=== PATIENT | female | born 1960 | race African-American/Black ===

== ENCOUNTER 2025-05-28 20:46 | Inpatient (IN) | payer OTHER ==
[2025-05-28] MEDS ORDERED: HYDROMORPHONE HCL 0.5 MG/0.5 ML INJ ONE (21:25)
[2025-05-28] MEDS ORDERED: Ringers Lactate 1,000 ML IV ONE (21:26)
[2025-05-28] MEDS ORDERED: NA CHLORIDE 0.9% 100 ML ONE (21:26)
[2025-05-28] MEDS ORDERED: PIPERACIL/TAZO 3.375 GM VIAL IV ONE (21:26)
[2025-05-28] MEDS ORDERED: ONDANSETRON 4 MG/2 ML VIAL ONE (21:26)
--- NOTE | 2025-05-28 21:28 | ER ---
Nurse's Notes [facility] [place] Name: Ashley Henao Age: 64 yrs Sex: Female : 1960 Arrival Date: 05/28/2025 Time: 20:46 Bed 18 Private MD: Diagnosis: DIVERTICULITIS OF INTESTINE WITHOUT PERFORATION;Lower abdominal pain, unspecified;Nausea Presentation: 05/28 20:51 Chief complaint: Patient states: SENT BY DOCTOR SPRINGER DUE TO ABNORMAL CT RESULTS, ha1 LOWER ABDOMINAL PAIN AND NAUSEA SINCE LAST WEEK. 20:51 Coronavirus screen: Client denies travel out of the [place] in the last 14 days. Ebola ha1 Screen: No symptoms or risks identified at this time. Initial Sepsis Screen: Does the patient meet any 2 criteria? No. Patient's initial sepsis screen is negative. Does the patient have a suspected source of infection? No. Patient's initial sepsis screen is negative. Risk Assessment: Do you want to hurt yourself or someone else? Patient reports no desire to harm self or others. Onset of symptoms was May 28, 2025. 20:51 Method Of Arrival: Ambulatory ha1 20:51 Acuity: LEROY 3 ha1 Triage Assessment: 21:02 General: Appears comfortable, Behavior is calm, cooperative. Pain: Complains of pain in ha1 right lower quadrant and left lower quadrant Pain currently is 6 out of 10 on a pain scale. Quality of pain is described as crampy. Neuro: Level of Consciousness is awake, alert, obeys commands, Oriented to person, place, time, situation. Cardiovascular: Patient's skin is warm and dry. Historical: - Allergies: 21:02 Latex, Natural Rubber; ha1 - PMHx: 21:02 Hypercholesterolemia; Hypertensive disorder; Diverticulitis; ha1 - Immunization history:: Adult Immunizations up to date. - Infectious Disease History:: Denies. - Social history:: Smoking status: Patient denies any tobacco usage or history of. Screenin:05 [facility] [place] ED Fall Risk Assessment (Adult) History of falling in the last 3 months, la1 including since admission No falls in past 3 months (0 pts) Confusion or Disorientation No (0 pts) Intoxicated or Sedated No (0 pts) Impaired Gait No (0 pts) Mobility Assist Device Used No (0 pt) Altered Elimination No (0 pt) Score/Fall Risk Level 0 - 2 = Low Risk Maintained a safe environment, Provided non-skid footwear, Hourly rounding (assess needs \T\ fall precautionary measures) done. Abuse screen: Denies threats or abuse. Nutritional screening: No deficits noted. Tuberculosis screening: No symptoms or risk factors identified. Assessment: 21:05 General: Appears in no apparent distress. well groomed, well developed, well nourished, me1 Behavior is calm, cooperative, appropriate for age, Reports Sent by Dr Springer for abnormal CT results. Lower abdominal pain and nausea since last week. Pain: Complains of pain in left lower quadrant and right lower quadrant Pain does not radiate. Pain currently is 5 out of 10 on a pain scale. Quality of pain is described as crampy, Pain began gradually, Is continuous. Neuro: Level of Consciousness is awake, alert, obeys commands, Oriented to person, place, time, situation, Appropriate for age. Cardiovascular: Patient's skin is warm and dry. Respiratory: Airway is patent Respiratory effort is even, unlabored, Respiratory pattern is regular, symmetrical. GI: Reports lower abdominal pain, nausea, since for about a week. : No signs and/or symptoms were reported regarding the genitourinary system. EENT: No signs and/or symptoms were reported regarding the EENT system. Derm: Skin is intact, is healthy with good turgor, Skin is normal. Musculoskeletal: Circulation, motion, and sensation intact. Range of motion: intact in all extremities. 22:00 Reassessment: Patient and/or family updated on plan of care and expected duration. Pain ha1 level reassessed. Patient is alert, oriented x 3, equal unlabored respirations, skin warm/dry/pink. 22:53 Reassessment: Patient and/or family updated on plan of care and expected duration. Pain ha1 level reassessed. Patient is alert, oriented x 3, equal unlabored respirations, skin warm/dry/pink. Vital Signs: 20:51 BP 119 / 84; Pulse 76; Resp 18 S; Temp 97.8; Pulse Ox 100% on R/A; Weight 89.81 kg; ha1 Height 5 ft. 6 in. ; 21:30 BP 129 / 74; Pulse 71; Resp 16; Pulse Ox 100% ; me1 22:00 BP 130 / 68; Pulse 70; Resp 18 S; Pulse Ox 100% on R/A; ha1 22:53 BP 113 / 66; Pulse 66; Resp 20; Pulse Ox 100% on R/A; ha1 20:51 Body Mass Index 31.96 (89.81 kg, 167.64 cm) ha1 ED Course: 20:51 Patient arrived in ED. gm2 20:59 Vaibhav Herrmann DO is Attending Physician. tt7 21:02 Triage completed. ha1 21:04 Zenaida William, SOCORRO is Primary Nurse. me1 21:05 Patient has correct armband on for positive identification. Bed in low position. Call me1 light in reach. Side rails up X2. Provided Education on: POC. Verbalized understanding.. Client placed on continuous cardiac and pulse oximetry monitoring. NIBP monitoring applied. Pulse ox on. NIBP on. 21:05 No provider procedures requiring assistance completed. me1 21:20 CBC with Diff Sent. me1 21:20 CMP Sent. me1 21:20 Lipase Sent. me1 21:20 Initial lab(s) drawn, by la, sent to lab. Inserted saline lock: 22 gauge in left [facility] [place] [place] antecubital area, using aseptic technique. 21:26 Andrwe Caba MD is Hospitalizing Provider. tt7 21:56 Arm band placed on Patient placed in an exam room. me1 21:56 Patient admitted, IV remains in place. me1 Administered Medications: 21:40 Drug: Ondansetron IVP 4 mg IVP once; over 2 minutes Route: IVP; Site: left antecubital; me1 21:51 Follow up: Response: No adverse reaction; Nausea is decreased me1 21:40 Drug: Ringers - Lactated Ringers Solution IV 1000 ml IV at 100 ml/hr continuous Route: me1 IV; Rate: 100 ml/hr; Site: left antecubital; 21:55 Follow up: IV Status: Infusion continued upon admission me1 21:41 Drug: HYDROmorphone IVP 0.5 mg IVP once Route: IVP; Site: left antecubital; me1 21:51 Follow up: Response: No adverse reaction; Pain is decreased me1 21:46 Drug: Piperacillin-Tazobactam IVPB 4.5 grams IVPB once over 60 mins; (mix in 100 mL NS) me1 Route: IVPB; Infused Over: 60 mins; Site: left antecubital; 22:58 Follow up: Response: No adverse reaction; IV Status: Completed infusion ha1 Medication: 21:05 VIS not applicable for this client. me1 Outcome: 21:28 Decision to Hospitalize by Provider. tt7 21:56 Admitted to Med/surg accompanied by vinod, via wheelchair, room 201, with chart, Report me1 called to tubed up, receipt confirmed with Mary 21:56 Condition: stable 21:56 Instructed on the need for admit, 23:05 Patient left the ED. ha1 Signatures: Anahi Hidalgo RN RN ha1 Zenaida William RN RN me1 Mercy Castillo gm2 Vaibhav Herrmann DO DO tt7 Corrections: (The following items were deleted from the chart) 21:03 21:02 Allergies: No Known Allergies; ha1 ha1
--- NOTE | 2025-05-28 21:29 | EDPHYS ---
Physician Documentation [facility] Name: Ashley Henao Age: 64 yrs Sex: Female : 1960 Arrival Date: 05/28/2025 Time: 20:46 Bed 18 Private MD: ED Physician Vaibhav Herrmann HPI: 05/28 21:11 This 64 yrs old Black Female presents to ER via Ambulatory with complaints of LLQ tt7 abdominal pain, abnormal CT result. 21:11 1 week of LLQ cramping pain with associated nausea. Pain is intermittent. At worst was tt7 10/10 in severity. Currently in ED is 6/10 in severity. Was seen by general surgeon Dr. Smith as an outpatient who ordered CT imaging of the abdomen/pelvis. This revealed evidence of diverticulitis with stranding. Associated diverticular abscess was not able to be definitively ruled out. Patient has been taking Augmentin as an outpatient since Wednesday with no improvement. He requested that patient come to the emergency department and be admitted for IV antibiotics. Historical: - Allergies: 21:02 Latex, Natural Rubber; ha1 - PMHx: 21:02 Hypercholesterolemia; Hypertensive disorder; Diverticulitis; ha1 - Immunization history:: Adult Immunizations up to date. - Infectious Disease History:: Denies. - Social history:: Smoking status: Patient denies any tobacco usage or history of. ROS: 21:43 Constitutional: negative for fever. Cardiovascular: negative for chest pain. tt7 Respiratory: negative for shortness of breath. MS/Extremity: negative for injury and deformity. Skin: negative for rash. Neuro: negative for focal weakness. 21:43 Abdomen/GI: Positive for abdominal pain, nausea, abdominal cramps, Negative for hematemesis, 21:43 Back: Negative for injury and pain, tt7 Exam: 21:43 Constitutional: vital signs reviewed, well appearing. Head/Face: normocephalic, tt7 atraumatic. Eyes: no conjunctival injection, anicteric sclerae. ENT: mucus membranes moist. Neck: trachea midline, no JVD, no meningismus. Chest/axilla: normal chest wall appearance and motion, nontender, no crepitus. Cardiovascular: regular rate and rhythm, no murmurs, no rubs, no lower extremity edema. Respiratory: normal respiratory effort, no accessory muscle use, lungs CTAB. Abdomen/GI: soft, nondistended, moderate left lower quadrant tenderness, no guarding or rebound, negative Pennington's sign, no McBurney point tenderness. Back: normal ROM. Skin: warm, dry, intact, normal turgor, normal color, no rash. MS/ Extremity: normal ROM of extremities, no gross deformities. Neuro: alert and oriented with appropriate mental status, normal speech, follows commands, no focal neurologic deficits. Psych: appropriate mood and affect. Vital Signs: 20:51 BP 119 / 84; Pulse 76; Resp 18 S; Temp 97.8; Pulse Ox 100% on R/A; Weight 89.81 kg; ha1 Height 5 ft. 6 in. ; 21:30 BP 129 / 74; Pulse 71; Resp 16; Pulse Ox 100% ; me1 22:00 BP 130 / 68; Pulse 70; Resp 18 S; Pulse Ox 100% on R/A; ha1 22:53 BP 113 / 66; Pulse 66; Resp 20; Pulse Ox 100% on R/A; ha1 20:51 Body Mass Index 31.96 (89.81 kg, 167.64 cm) ha1 MDM: 20:59 Medical Screening Exam initiated tt7 21:12 Differential Diagnosis Diverticulitis, abdominal abscess, pancreatitis. Data reviewed: tt7 vital signs, nurses notes. ED course: I discussed the case with general surgeon Dr. Smith, he had ordered outpatient CT imaging of the abdomen/pelvis for this patient, we discussed the patient's clinical presentation, CT imaging results of diverticulitis with stranding and inability for the CT imaging to rule out associated abscess, we discussed the outpatient treatment with Augmentin that the patient has received and the need for inpatient admission for IV antibiotics and pain/nausea control, he will consult on the case. 21:44 Consideration of Admission/Observation Patient was admitted/placed on observation. tt7 Management of patient was discussed with the following: Middleware Engineer: Dr. Smith, general surgery. I considered the following discharge prescriptions or medication management in the emergency department Medications were administered in the Emergency Department. See MAR. Test considered but Not performed: CT: already done as an outpatient. Historians other than the Patient: Spouse/Significant Other: . Counseling: I had a detailed discussion with the patient and/or guardian regarding the historical points, exam findings, and any diagnostic results supporting the discharge/admit diagnosis, the need for further work-up and treatment in the hospital. 05/28 21:00 Order name: CBC with Diff; Complete Time: 21:40 tt7 05/28 21:00 Order name: CMP; Complete Time: 22:51 tt7 05/28 21:00 Order name: Lipase; Complete Time: 22:51 tt7 05/28 21:46 Order name: CBC with Automated Diff EDMS 05/28 21:46 Order name: CBC with Automated Diff EDMS 05/28 21:46 Order name: Comprehensive Metabolic Panel EDMS 05/28 21:46 Order name: Comprehensive Metabolic Panel EDMS 05/28 21:46 Order name: CONS Physician Consult EDMS 05/28 21:00 Order name: IV Saline Lock; Complete Time: 21:20 tt7 05/28 21:00 Order name: Labs collected and sent; Complete Time: 21:20 tt7 05/28 21:10 Order name: NPO: May have ice chips and sips of water; Complete Time: 21:21 tt7 Administered Medications: 21:40 Drug: Ondansetron IVP 4 mg IVP once; over 2 minutes Route: IVP; Site: left antecubital; me1 21:51 Follow up: Response: No adverse reaction; Nausea is decreased me1 21:40 Drug: Ringers - Lactated Ringers Solution IV 1000 ml IV at 100 ml/hr continuous Route: me1 IV; Rate: 100 ml/hr; Site: left antecubital; 21:55 Follow up: IV Status: Infusion continued upon admission me1 21:41 Drug: HYDROmorphone IVP 0.5 mg IVP once Route: IVP; Site: left antecubital; me1 21:51 Follow up: Response: No adverse reaction; Pain is decreased me1 21:46 Drug: Piperacillin-Tazobactam IVPB 4.5 grams IVPB once over 60 mins; (mix in 100 mL NS) me1 Route: IVPB; Infused Over: 60 mins; Site: left antecubital; 22:58 Follow up: Response: No adverse reaction; IV Status: Completed infusion ha1 Disposition: 21:46 Co-signature as Attending Physician, Vaibhav Herrmann DO. tt7 Disposition Summary: 05/28/25 21:28 Hospitalization Ordered Notes: Hospitalization Status: Inpatient Admission tt7 Provider: Andrew Caba tt7 Location: Telemetry/MedSurg (Inpatient) tt7 Condition: Stable tt7 Problem: new tt7 Symptoms: are unchanged tt7 Bed/Room Type: Standard tt7 Room Assignment: 201(05/28/25 21:38) rv1 Diagnosis - DIVERTICULITIS OF INTESTINE WITHOUT PERFORATION tt7 - Lower abdominal pain, unspecified tt7 - Nausea tt7 Forms: - Medication Reconciliation Form tt7 - SBAR form tt7 - Leadership Thank You Letter tt7 Signatures: Dispatcher [employer] EDAnahi Ratliff RN RN ha1 Marguerite Agrawal rv1 Zenaida William RN RN me1 Vaibhav Herrmann, DO tt7 Corrections: (The following items were deleted from the chart) 21:03 21:02 Allergies: No Known Allergies; ha1 ha1 21:38 21:28 tt7 rv1 21:43 21:11 1 week of LLQ cramping pain. tt7 tt7
[2025-05-28] MEDS ORDERED: PIPERACIL/TAZO 4.5 GM VIAL IV ONE (21:30)
[2025-05-28 21:38] LABS: Absolute Lymphocytes (CBC) 2.2 K/uL (0.7-4.9); Hematocrit 37.5 % (36.0-45.0); Hemoglobin 12.7 g/dL (12.0-15.0); MCH 29.9 pg (27.0-35.0); MCHC 33.8 g/dL (32.0-36.0); MCV 88.5 fL (80-100); MPV 7.3 fL (7.6-11.3); Nucleated RBC Absolute Count 0.0 (0-0); Nucleated Red Blood Cells % 0.0 % (0-0); RBC Red Blood Cell Count 4.24 M/uL (3.86-4.86); White Blood Count 6.70 thou/uL (4.3-10.9)
[2025-05-28] MEDS ORDERED: ONDANSETRON 4 MG/2 ML VIAL IV PRN (21:40)
[2025-05-28] MEDS ORDERED: ACETAMINOPHEN 325 MG TABLET PO PRN (21:40)
--- NOTE | 2025-05-28 21:40 | P.HP ---
Certification for Inpatient Patient admitted to: Inpatient With expected LOS: >2 Midnights Practitioner: I am a practitioner with admitting privileges, knowledge of patient current condition, hospital course, and medical plan of care. Services: Services provided to patient in accordance with Admission requirements found in Title 42 Section 412.3 of the Code of Federal Regulations Patient History Date of Service: 05/29/25 History of Present Illness: 64 yrs old Female with past medical history of hypertension, hyperlipidemia, diverticulosis, who started having abdominal pain located in the left lower quadrant which was progressively getting worse. Pain is intermittent cramping type, 6 out of 10 in severity, located initially left lower quadrant and is diffusely spread. No fever or chills. Associated with nausea. Denies any hematemesis or melena. Patient was seen in outside hospital and had a CT which was consistent with diverticulitis with possible diverticular abscess. The patient was transferred over here for further management.. Patient was assessed in the ER and is admitted for further management of diverticulitis with possible diverticular abscess Allergies adhesive tape Allergy (Verified 05/28/25 23:04) Blisters Home medications list reviewed: Yes Home Medications: Aspirin Chewable [Aspirin Chewable*] 81 mg PO DAILY 02/05/25 Linaclotide [Linzess] 145 mcg PO PRN PRN 02/05/25 Magnesium Oxide [Mag 0X Tab] 400 mg PO DAILY 02/05/25 Pantoprazole [Protonix Tab] 40 mg PO DAILY 02/05/25 Venlafaxine HCl [Venlafaxine HCl ER] 150 mg PO DAILY 02/05/25 ALPRAZolam [Alprazolam] 0.5 mg PO BID 05/28/25 Losartan/Hydrochlorothiazide [Losartan-Hctz 100-25 mg Tab] 1 tab PO DAILY 05/28/25 Mirabegron [Myrbetriq] 50 mg PO DAILY 05/28/25 Rosuvastatin [Crestor*] 1 tab PO DAILY 05/28/25 - Past Medical/Surgical History Past Medical History: Reviewed- Non-Contributory -: Hypertension, hyperlipidemia Past Surgical History: Reviewed- Non-Contributory - Social History Smoking Status: Never smoker Review of Systems 10-point ROS is otherwise unremarkable Physical Examination - Vital Signs Temperature: 97.8 F Blood Pressure: 119/84 Pulse: 76 Respirations: 18 Pulse Ox (%): 94 - Physical Exam General: Alert, Oriented x3, Mild distress HEENT: Atraumatic, Normocephalic Neck: Supple Respiratory: Clear to auscultation bilaterally, Normal air movement Cardiovascular: Regular rate/rhythm Capillary refill: <2 Seconds Gastrointestinal: Soft and benign, W/out hepatosplenomegaly, Tenderness Musculoskeletal: No clubbing Integumentary: No rashes Neurological: Other (Awake alert nonfocal) Lymphatics: No axilla or inguinal lymphadenopathy - Studies Laboratory Data (last 24 hrs) 05/28/25 21:18 WBC 6.70 Hgb 12.7 Hct 37.5 Plt Count 356 Assessment and Plan - Plan Diverticulitis Possible diverticular abscess Started on IV antibiotic N.p.o. for now Started on pain medications Titrate as needed Will consult Dr. Smith Will obtain cultures Change antibiotic as per sensitivity Hypertension Antihypertensives titrated Continue home medications and titrate as needed Hyperlipidemia Continue statin Anxiety Continue home medications and titrate as needed GI/DVT prophylaxis Advanced directive full code Discharge Plan: Home Plan to discharge in: 48 Hours - Advance Directives Does patient have a Living Will: No Does patient have a Durable POA for Healthcare: No - Code Status/Comfort Care Code Status: Full Code Time Spent Managing Pts Care (In Minutes): 48
[2025-05-28] MEDS ORDERED: HYDROCODONE/APAP 5/325 MG TAB PO PRN (21:45)
[2025-05-28 21:59] LABS: ALT/SGPT 38.0 U/L (13-56); AST/SGOT 32.0 U/L (15-37); Albumin 3.1 g/dL (3.4-5.0); Albumin/Globulin Ratio 0.7 (1.1-1.8); Alkaline Phosphatase 107.0 U/L (45-117); Anion Gap 7.5 mEq/L (5.0-15.0); BUN Blood Urea Nitrogen 12.0 mg/dL (7-18); Globulin 4.7 g/dL (2.3-3.5); Glucose Level 109.0 mg/dL (74-106); Lipase 54.0 U/L (13-75); Potassium 3.5 mEq/L (3.5-5.1)
[2025-05-28 23:09] VITALS: O2SAT 100
[2025-05-28] MEDS: NA CHLORIDE 0.9% 1,000 ML IV SCH (23:21)
[2025-05-28] MEDS ORDERED: HOME MED 1 EA UNK (Linaclotide [Linzess] 145 MCG Capsule) PO PRN (23:53)
[2025-05-29] MEDS: PIPER TAZO 3.375 GM in NA CHLORIDE 0.9% 100 ML IV SCH (00:57)
[2025-05-29] MEDS: MORPHINE 2 MG/ML SYR IV PRN (01:41)
[2025-05-29 05:17] LABS: Absolute Lymphocytes (CBC) 2.0 K/uL (0.7-4.9); Hematocrit 36.7 % (36.0-45.0); Hemoglobin 12.5 g/dL (12.0-15.0); MCH 30.1 pg (27.0-35.0); MCHC 34.1 g/dL (32.0-36.0); MCV 88.1 fL (80-100); MPV 6.8 fL (7.6-11.3); Nucleated RBC Absolute Count 0.0 (0-0); Nucleated Red Blood Cells % 0.1 % (0-0); RBC Red Blood Cell Count 4.17 M/uL (3.86-4.86); White Blood Count 5.90 thou/uL (4.3-10.9)
[2025-05-29 05:41] LABS: ALT/SGPT 33.0 U/L (13-56); AST/SGOT 23.0 U/L (15-37); Albumin 2.9 g/dL (3.4-5.0); Albumin/Globulin Ratio 0.7 (1.1-1.8); Alkaline Phosphatase 98.0 U/L (45-117); Anion Gap 6.4 mEq/L (5.0-15.0); BUN Blood Urea Nitrogen 10.0 mg/dL (7-18); Globulin 4.2 g/dL (2.3-3.5); Glucose Level 106.0 mg/dL (74-106); Potassium 3.4 mEq/L (3.5-5.1)
[2025-05-29] MEDS: PANTOPRAZOLE 40MG TABLET PO SCH (08:22)
[2025-05-29] MEDS: POTASSIUM CL SA 10 MEQ TAB PO ONE (08:22)
[2025-05-29] MEDS: LOSARTAN/HCTZ 50-12.5 PO SCH (08:22)
[2025-05-29] MEDS: ALPRAZOLAM 0.5 MG TABLET PO SCH (08:23)
[2025-05-29] MEDS: MAGNESIUM OXIDE 400 MG TAB PO SCH (08:24)
[2025-05-29] MEDS: ASPIRIN 81 MG CHEWABLE TABLET PO SCH (08:24)
[2025-05-29] MEDS: VENLAFAXINE HCL XR 75 MG CAP PO SCH (08:24)
[2025-05-29] MEDS: ROSUVASTATIN 5 MG TAB PO SCH ×2 (08:25→21:17)
[2025-05-29] MEDS: MIRABEGRON 50 MG PO SCH (08:30)
--- NOTE | 2025-05-29 09:00 | P.PN ---
Date of Service: 05/29/25 Subjective: feeling much better pain much improved tolerating clear liquids still having LLQ pain Physical Exam: Gen: Alert, Oriented, NAD CV: Regular rate and rhythm, no edema Pulm: Nonlabored respirations on room air, clear bilaterally Abdomen: Soft, abdominal tenderness in LLQ Neuro: Normal strength, normal affect Problem List: Acute diverticulitis with possible diverticular abscess Hypertension Hyperlipidemia Anxiety Acute diverticulitis with possible diverticular abscess on admission, presents from OSH per Dr. Smith recommendations after abnormal CT. CT from OSH reportedly showed diverticulitis with possible diverticular abscess Reports ongoing abdominal pain associated with nausea/vomiting for [address] Smith consulted on admission advanced to [facility] by surgery Continue IV zosyn (05/29-) pain control, IVF oral protonix Hypertension Hyperlipidemia Anxiety confirm home meds, restart as appropriate VTE: SCD Code: Full Dispo: Home Pending surgical recs, possible surgery, improvement Time spent managing patient's care: 45 minutes
[2025-05-30 05:07] LABS: Hematocrit 33.1 % (36.0-45.0); Hemoglobin 11.7 g/dL (12.0-15.0); MCH 30.8 pg (27.0-35.0); MCHC 35.2 g/dL (32.0-36.0); MCV 87.4 fL (80-100); MPV 6.5 fL (7.6-11.3); RBC Red Blood Cell Count 3.79 M/uL (3.86-4.86); White Blood Count 4.80 thou/uL (4.3-10.9)
[2025-05-30 05:21] LABS: ALT/SGPT 24.0 U/L (13-56); AST/SGOT 21.0 U/L (15-37); Albumin 2.5 g/dL (3.4-5.0); Albumin/Globulin Ratio 0.6 (1.1-1.8); Alkaline Phosphatase 88.0 U/L (45-117); Anion Gap 8.0 mEq/L (5.0-15.0); BUN Blood Urea Nitrogen 8.0 mg/dL (7-18); Globulin 4.0 g/dL (2.3-3.5); Glucose Level 92.0 mg/dL (74-106); Magnesium 2.1 mg/dL (1.6-2.4); Potassium 4.0 mEq/L (3.5-5.1)
[2025-05-30 06:51] VITALS: BMI 35.5
[2025-05-30] MEDS: NA CHLORIDE 0.9% 1,000 ML IV SCH (09:53)
--- NOTE | 2025-05-30 11:25 | P.PN ---
Date of Service: 05/30/25 Subjective: feeling better denies any new / worsening problems tolerating liquid diet without issues pain and nausea improved Physical Exam: Gen: Alert, Oriented, NAD CV: Regular rate and rhythm, no edema Pulm: Nonlabored respirations on room air, clear bilaterally Abdomen: Soft, minimal abdominal tenderness Neuro: Normal strength, normal affect Problem List: Acute diverticulitis with possible diverticular abscess Hypertension Hyperlipidemia Anxiety Acute diverticulitis with possible diverticular abscess on admission, presents from OSH per Dr. Smith recommendations after abnormal CT. CT from OSH reportedly showed diverticulitis with possible diverticular abscess Reports ongoing abdominal pain associated with nausea/vomiting for [address] Smith is following [facility] for lunch; advance per surgery Continue IV zosyn (05/29-) pain control, IVF oral protonix Hypertension Hyperlipidemia Anxiety confirm home meds, restart as appropriate VTE: SCD Code: Full Dispo: Home Pending surgical recs, tolerating diet without issues Time spent managing patient's care: 45 minutes
[2025-05-30] MEDS: ASPIRIN 81 MG CHEWABLE TABLET PO SCH (20:32)
[2025-05-30 22:22] LABS: Sqamous Epithelial <5 /HPF (None Seen); Urine Culture Reflex Order NOT NEEDED; Urine Microscopic Reflex YN ORDER UMIC; Urine Yeast (Budding) Trace /HPF (None Seen)
[2025-05-30] MEDS: hydroCHLOROthiazide 25 MG TAB PO ONE (23:08)
[2025-05-31 11:44] VITALS: BP 126/75; TEMP 98.1
--- NOTE | 2025-06-02 11:13 | P.DS ---
Admission Date: 05/28/25 Discharge Date: 05/31/25 Disposition: ROUTINE DISCHARGE Discharge Condition: GOOD Consultations: General surgery - Dr. Smith Brief History of Present Illness: 64 yo F, PMH: hypertension, hyperlipidemia, diverticulosis, Patient who started having abdominal pain located in the left lower quadrant which was progressively getting worse. Pain is intermittent cramping type, 6 out of 10 in severity, located initially left lower quadrant and is diffusely spread. No fever or chills. Associated with nausea. Denies any hematemesis or melena. Patient was seen in outside hospital and had a CT which was consistent with diverticulitis with possible diverticular abscess. The patient was transferred over here for further management.. Patient was assessed in the ER and is admitted for further management of diverticulitis with possible diverticular abscess Hospital Course: Problem List: Acute diverticulitis with possible diverticular abscess Hypertension Hyperlipidemia Anxiety Physician discharge instructions: Patient presented from an outside facility per Dr. Smith recommendations after abnormal CT reportedly showed diverticulitis with focal wall thickening of the anterior wall of the colon which could relate to small intramural abscess. She reported ongoing abdominal pain associated with nausea/vomiting for 1 week secondary to acute diverticulitis. Imaging deferred given that she just had CT at another facility. Patient was evaluated by Dr. Smith who recommended conservative medical ma nagement with bowel rest, pain control, IV antibiotics. She received IV zosyn in addition to protonix and had improvement of her symptoms. Her diet was slowly advanced as pain and nausea improved. Patient was feeling better, abdominal pain improved, nausea/vomiting resolved, and was deemed stable for discharge. Patient was tolerating regular diet on day of discharge without issues. Follow up with Dr. Smith in his office in 1 week for further management. Consider elective colonoscopy in the near future once this acute episode resolves to further evaluate. Patient is to complete 1 more week of oral antibiotics to complete ~10 day total course. Medications: Levaquin and Flagyl for 7 days Patient was prescribed 7 days of levaquin on day of admission, so prescription sent only for flagyl Follow up: PCP 3-[address] Smith in 1 week Please call to schedule / confirm appointments Physical Exam: Gen: Alert, Oriented, NAD CV: Regular rate and rhythm, no edema Pulm: Nonlabored respirations on room air, clear bilaterally Abdomen: Soft, minimal abdominal tenderness Neuro: Normal strength, normal affect Vital Signs/Physical Exam: Temp Pulse Resp BP Pulse Ox 98.1 F 67 17 126/75 98 05/31/25 11:43 05/31/25 11:43 05/31/25 11:43 05/31/25 11:43 05/31/25 11:43 Laboratory Data at Discharge: WBC 4.80 thou/uL (4.3-10.9) 05/30/25 04:44 Hgb 11.7 g/dL (12.0-15.0) L 05/30/25 04:44 Hct 33.1 % (36.0-45.0) L 05/30/25 04:44 Plt Count 342 thou/uL (152-406) 05/30/25 04:44 Sodium 141 mEq/L (136-145) 05/30/25 04:44 Potassium 4.0 mEq/L (3.5-5.1) 05/30/25 04:44 BUN 8 mg/dL (7-18) 05/30/25 04:44 Creatinine 1.03 mg/dL (0.55-1.02) H 05/30/25 04:44 Glucose 92 mg/dL (74-106) 05/30/25 04:44 Magnesium 2.1 mg/dL (1.6-2.4) 05/30/25 04:44 Total Bilirubin 0.5 mg/dL (0.2-1.0) 05/30/25 04:44 AST 21 U/L (15-37) 05/30/25 04:44 ALT 24 U/L (13-56) 05/30/25 04:44 Alkaline Phosphatase 88 U/L (45-117) 05/30/25 04:44 Lipase 54 U/L (13-75) 05/28/25 21:18 Home Medications: Aspirin Chewable [Aspirin Chewable*] 81 mg PO DAILY 02/05/25 Linaclotide [Linzess] 145 mcg PO PRN PRN 02/05/25 Magnesium Oxide [Mag 0X*] 400 mg PO DAILY 02/05/25 Pantoprazole [Protonix Tab*] 40 mg PO DAILY 02/05/25 Venlafaxine HCl [Venlafaxine HCl ER] 150 mg PO DAILY 02/05/25 ALPRAZolam [Alprazolam] 0.5 mg PO BID 05/28/25 Losartan/Hydrochlorothiazide [Losartan-Hctz 100-25 mg Tab] 1 tab PO DAILY 05/28/25 Mirabegron [Myrbetriq] 50 mg PO DAILY 05/28/25 Rosuvastatin [Crestor*] 1 tab PO DAILY 05/28/25 metroNIDAZOLE [Flagyl] 500 mg PO Q8H 7 Days #21 tab 05/31/25 New Medications: metroNIDAZOLE [Flagyl] 500 mg PO Q8H 7 Days #21 tab Physician Discharge Instructions: Physician discharge instructions: Patient presented from an outside facility per Dr. Smith recommendations after abnormal CT reportedly showed diverticulitis with focal wall thickening of the anterior wall of the colon which could relate to small intramural abscess. She reported ongoing abdominal pain associated with nausea/vomiting for 1 week secondary to acute diverticulitis. Imaging deferred given that she just had CT at another facility. Patient was evaluated by Dr. Smith who recommended conservative medical management with bowel rest, pain control, IV antibiotics. She received IV zosyn in addition to protonix and had improvement of her symptoms. Her diet was slowly advanced as pain and nausea improved. Patient was feeling better, abdominal pain improved, nausea/vomiting resolved, and was deemed stable for discharge. Patient was tolerating regular diet on day of discharge without issues. Follow up with Dr. Smith in his office in 1 week for further management. Consider elective colonoscopy in the near future once this acute episode resolves to further evaluate. Patient is to complete 1 more week of oral antibiotics to complete ~10 day total course. Medications: Levaquin and Flagyl for 7 days Patient was prescribed 7 days of levaquin on day of admission, so prescription sent only for flagyl Follow up: PCP 3-[address] Smith in 1 week Please call to schedule / confirm appointments Diet: ADA Followup: Dick Smith MD [ACTIVE - CAN ADMIT] - 1 Week Lisseth Sinclair NP [Primary Care Provider] - 1 Week Time spent managing pt's care (in minutes): 45
== END 2025-05-31 15:57 | disposition home or self-care (01) | DRG 392 ==
LOC: ER 20:46 → ERHOLD 21:40 → 2ND 22:42
PROVIDERS: ADMIT Family Medicine; ATTEND Hospitalist
DX: K57.20 Diverticulitis of large intestine with perforation and abscess without bleeding (principal); F41.9 Anxiety disorder, unspecified; E78.00 Pure hypercholesterolemia, unspecified; I10 Essential (primary) hypertension; Z79.82 Long term (current) use of aspirin; Z91.040 Latex allergy status; Z79.899 Other long term (current) drug therapy; Z91.048 Other nonmedicinal substance allergy status
CPT/HCPCS: 36415; 74176; 80053; 81001; 83690; 83735; 84132; 85025; 85027; 96365; 96375; 99285; J1171; J2270; J2405; J2543; J7030; J7120